=== PATIENT | female | born 1955 | race Caucasian/White ===

== ENCOUNTER → 2019-08-21 09:53 | Outpatient (CLI) | payer MEDICARE, MEDICAID, SELFPAY ==
--- NOTE | ~2019-08-21 | XR_ITS ---
XR chest 2V 08/21/2019 10:37 Indication: Productive cough Procedure: 2 view chest Comparison: Comparison to multiple prior studies sequentially, with oldest reviewed study dated 08/01. Findings: Heart size normal. No focal pneumonia, edema or effusion. The lungs are hyperinflated which is consistent with, but not diagnostic of chronic obstructive pulmonary disease. No pneumothorax. Impression: 1: No acute cardiopulmonary disease. Reviewed, dictated and finalized at location B. [employer] Impression: 1: No acute cardiopulmonary disease.
== END ==
PROVIDERS: PCP Family Medicine; Visit Provider Family Medicine
DX: R05 Cough (principal)
CPT/HCPCS: 71046

== ENCOUNTER 2020-01-05 16:10 | Inpatient (IN) | payer MEDICARE, MEDICAID, SELFPAY ==
[2020-01-05] VITALS (8 sets, daily range): BP systolic 116–164; BP diastolic 60–88; PULSE 116–131; RESP 18–22; TEMP 36.8; O2SAT 91–98
--- NOTE | ~2020-01-05 | XR_ITS ---
EXAMINATION: XR knee LT 3V, XR tibia fibula LT 2V EXAM DATE: 01/08/2020 14:56 INDICATION: Left leg pain with weightbearing. Decreased range of motion. TECHNIQUE: Three projections of the left knee. Tibia and fibula frontal and lateral projections. Ther e is no prior study for comparison. FINDINGS: Left knee: There is severe osteopenia in the left femoral distal metaphysis and the left fibular and tibial proximal metaphyses. Given that there is similar appearance to the left ankle, could be from d isuse, please clinically correlate. There is some ill-defined cortex along the tibial tuberosity, possibly disrupted anterior cortex from permeative process, or possibly a pathological tibial tuberosity fracture. There is no edema anterio r to this and there is no knee joint effusion to suggest aseptic joint. No sclerosis to suggest suba cute fracture. No radiopaque foreign bodies identified. Tibia and fibula: Left tibial and fibular distal metaphyses has some scattered regions of osteopenia. There is more pronounced osteopenia involving the entire hind and midfoot, if patient isn't ambulato ry could be from disuse. There are no bony erosions identified. IMPRESSION: 1. Severe osteopenia in tibial, fibular, distal femoral metaphyses, and the foot. Disuse? 2. Possible anterior tibial cortical disruption, check for point tenderness. Can't exclude acute fra cture or permeative process such as multiple myeloma. Clinical correlation. Consider CT or MRI left k nee for further evaluation. Reviewed, dictated and finalized at location A. IMPRESSION: 1. Severe osteopenia in tibial, fibular, distal femoral metaphyses, and the fo ot. Disuse? 2. Possible anterior tibial cortical disruption, check for point tenderness. C an't exclude acute fracture or permeative process such as multiple myeloma. Cli nical correlation. Consider CT or MRI left knee for further evaluation.
--- NOTE | ~2020-01-05 | CT_ITS ---
EXAMINATION: CTA chest PE protocol DATE: 01/11/2020 01:32 INDICATION: Tachycardia. TECHNIQUE: Computed tomography angiography (CTA) of the chest was performed with 100 mL Omnipaque-350 intravenous contrast timed to evaluate the pulmonary arteries. Coronal maximum intensity projection 3D-reconstructions were created by the technologist. Automated exposure control and iterative reconst ruction technique were employed. The dose-length product was 279.55 mGy-cm. COMPARISON: Chest CT 09/25/2017 FINDINGS: There are small pleural effusions. There is dependent passive atelectasis in the lower lobe s. There is mild atelectasis in the upper lobes and right middle lobe. There is mild emphysema. The h eart size is normal. No pericardial effusion. There is no pulmonary embolus. There is mild thoracic s pondylosis. IMPRESSION: 1. No pulmonary embolus. 2. Small pleural effusions. 3. Mild emphysema. Reviewed, dictated and finalized at location A.
--- NOTE | ~2020-01-05 | XR_ITS ---
EXAMINATION: XR hip LT 2V w AP pelvis INDICATION: Left hip pain after fall TECHNIQUE: AP view of the pelvis and two views of the left hip are obtained. COMPARISON: 09/24/2018 FINDINGS: There is a questionable intertrochanteric fracture of the left femur. The femoral head is w ell-seated in the acetabulum. Orthopedic hardware is noted in the right hip stabilizing a prior fract ure. IMPRESSION: 1. Possible left hip fracture. Further evaluation with CT of the hip is recommended. Reviewed, dictated and finalized at location A. IMPRESSION: 1. Possible left hip fracture. Further evaluation with CT of the hip is recomme nded.
--- NOTE | ~2020-01-05 | MR_ITS ---
EXAMINATION: MR hip LT wo con DATE: 01/06/2020 12:23 INDICATION: Left hip pain. Left hip contusion. TECHNIQUE: Magnetic resonance imaging (MRI) of the left hip was performed without intravenous contras t. Sequences included axial and coronal PD-weighted FS FSE and axial T1-weighted FSE of the pelvis. S equences of the hip included 2D FIESTA, T1-weighted fast GRE, and axial, coronal, and sagittal PD-radha ghted FS FSE. COMPARISON: Left hip CT 01/05/2020 FINDINGS: Bone alignment is normal. No acute fracture. There is internal fixation of proximal right femur with antegrade intramedullary faustino, femoral head/neck screw, distal interlocking screw. Left femoral head/n kathrin morphology is normal. Left hip joint demonstrates tiny marginal osteophytes. There is partial-thi ckness cartilage loss in the left hip joint posteriorly with mild subchondral edema. There is a tear of the left acetabular labrum. The left gluteus minimus and gluteus medius tendons are normal. There is edema in left gluteus medius and gluteus minimus muscle bellies. There is mild bilateral trochante rylie bursitis. There is mild tendinopathy of the left hamstring origin. The left iliopsoas tendon is n ormal. There is subcutaneous edema in the lateral buttocks on both sides. IMPRESSION: 1. No fracture. 2. Mild left hip osteoarthritis. 3. Edema in the left gluteus medius and gluteus minimus muscle bellies, consistent with contusion david eduardo mild strain (grade 1). Reviewed, dictated and finalized at location A. IMPRESSION: 1. No fracture. 2. Mild left hip osteoarthritis. 3. Edema in the left gluteus medius and gluteus minimus muscle bellies, consist ent with contusion versus mild strain (grade 1).
--- NOTE | ~2020-01-05 | XR_ITS ---
EXAMINATION: XR chest 1V portable INDICATION: Shortness of breath and confusion TECHNIQUE: Portable AP chest at 1805 hours COMPARISON: 08/21/2019 FINDINGS: The lungs are hyperinflated but free of acute opacities. There is no pleural effusion or pn eumothorax. The cardiomediastinal silhouette is normal. IMPRESSION: 1. Hyperinflation without acute cardiopulmonary abnormality. Reviewed, dictated and finalized at location A.
--- NOTE | ~2020-01-05 | CT_ITS ---
EXAMINATION: CT tibia/fibula LT wo con DATE: 01/11/2020 01:32 INDICATION: Left tibia fracture. TECHNIQUE: Computed tomography (CT) of the left tibia and fibula was performed without intravenous co ntrast. Automated exposure control and iterative reconstruction technique were employed. The dose-odell gth product was 811.70 mGy-cm. COMPARISON: Left tibia and fibula radiographs 01/08/2020 FINDINGS: There is a nondisplaced oblique fracture of proximal tibia involving the intercondylar kamryn ence and the tibial metaphysis near the tibial tubercle. Osteopenia is noted. There is mild osteoarth ritis of patellofemoral compartment of the knee. There is a small knee joint effusion. There is a sma ll Negron's cyst. IMPRESSION: 1. Nondisplaced oblique fracture of proximal tibia involving the intercondylar eminence and tibial me taphysis. 2. Mild left knee osteoarthritis. 3. Small knee joint effusion. 4. Small Negron's cyst. Reviewed, dictated and finalized at location A. IMPRESSION: 1. Nondisplaced oblique fracture of proximal tibia involving the intercondylar eminence and tibial metaphysis. 2. Mild left knee osteoarthritis. 3. Small knee joint effusion. 4. Small Negron's cyst.
--- NOTE | ~2020-01-05 | CT_ITS ---
EXAMINATION: CT cervical spine wo con DATE: 01/05/2020 16:54 INDICATION: Fall. Neck pain. TECHNIQUE: Computed tomography (CT) of the cervical spine was performed without intravenous contrast. Automated exposure control and iterative reconstruction technique were employed. Exam dose: 110.15 mGy-cm total exam DLP. COMPARISON: 01/21/2017 CT facial bones and cervical spine FINDINGS: C1 and C2 are normally aligned and the odontoid process is intact. No fracture or dislocati on or locked facet. No prevertebral soft tissue swelling. There is mild degenerative disease at C4-5 and C5-6 primarily.. IMPRESSION: Mild degenerative change; no fracture or dislocation or locked facet Reviewed, dictated and finalized at Location A. Reviewed, dictated and finalized at location B. IMPRESSION: Mild degenerative change; no fracture or dislocation or locked fac et
--- NOTE | ~2020-01-05 | CT_ITS ---
EXAMINATION: CT hip LT wo con INDICATION: Chest pain after fall TECHNIQUE: Computed tomographic images of the left hip were obtained without intravenous contrast. Th e dose-length product (DLP) was 130.71 mGy-cm. Automated exposure control and iterative reconstructio n technique were employed. COMPARISON: 02/27/2017 FINDINGS: Sensitivity for fracture is limited by osteopenia. No definite fracture is identified. Ther e is a healed greater trochanter fracture. The soft tissues are unremarkable. IMPRESSION: 1. No definite acute fracture identified. If there is persistent high clinical suspicion for nondispl aced fracture, MRI is recommended. Reviewed, dictated and finalized at location A. IMPRESSION: 1. No definite acute fracture identified. If there is persistent high clinical suspicion for nondisplaced fracture, MRI is recommended.
--- NOTE | ~2020-01-05 | US_ITS ---
EXAMINATION: US venous doppler [facility] DATE: 01/10/2020 14:36 INDICATION: Left lower limb pain. TECHNIQUE: Grayscale ultrasound images without and with compression and Doppler ultrasound images of the left lower extremity veins were obtained. COMPARISON: None. FINDINGS: The visualized portions of left common femoral vein, profunda (deep) femoral vein, femoral vein, popl iteal vein, peroneal veins, posterior tibial veins, and greater saphenous vein outflow are patent. IMPRESSION: 1. No deep venous thrombosis. Reviewed, dictated and finalized at location E.
--- NOTE | ~2020-01-05 | CT_ITS ---
EXAMINATION: CT brain wo con DATE: 01/05/2020 16:54 INDICATION: Fall. Neck pain. TECHNIQUE: Computed tomography (CT) of the head was performed without intravenous contrast. The mA wa s adjusted according to patient size. Iterative reconstruction technique was employed. Exam dose: 60 5.33 mGy-cm total exam DLP. COMPARISON: 11/24/2018 CT brain FINDINGS: Vertebral and bilateral carotid siphon internal carotid artery calcifications are noted. Examination is limited due to motion artifact. No intracranial mass lesion or hemorrhage or cerebrovascular accident is evident. No midline shifts o r mass effects. No subdural or epidural hematoma. No skull fracture is evident. Included paranasal sinuses and mastoid air cells are unremarkable. IMPRESSION: Limited examination due to motion; no acute intracranial finding or skull fracture is ev ident Reviewed, dictated and finalized at Location A. Reviewed, dictated and finalized at location B. IMPRESSION: Limited examination due to motion; no acute intracranial finding o r skull fracture is evident
--- NOTE | ~2020-01-05 | MR_ITS ---
EXAMINATION: MR brain/brain stem wo con DATE: 01/07/2020 07:10 INDICATION: Confusion. Left-sided pronator drift. TECHNIQUE: Magnetic resonance imaging (MRI) of the brain and brainstem was performed without intraven ous contrast. Sequences included sagittal and axial T1-weighted FSE, axial diffusion-weighted FS EPI, axial T2*-weighted GRE, axial T2-weighted FLAIR Propeller, and axial T2-weighted Propeller. Apparent diffusion coefficient (ADC) maps were created. COMPARISON: Head CT 01/05/2020 FINDINGS: There are scattered areas of nonspecific increased T2-weighted signal intensity in the cere bral white matter and rafael. There is no intracranial hemorrhage, acute infarction, or abnormal intrac ranial mass lesion. The ventricles are normal in size. The paranasal sinuses are clear. The orbits ar e normal. The mastoid air cells are normal. IMPRESSION: 1. Moderate nonspecific cerebral white matter disease and pontine disease, which likely represents ch ronic small vessel ischemic disease. Reviewed, dictated and finalized at location A. IMPRESSION: 1. Moderate nonspecific cerebral white matter disease and pontine disease, whic h likely represents chronic small vessel ischemic disease.
--- NOTE | 2020-01-05 16:34 | ED.GENADULT ---
HPI - General Adult General Chief complaint: Extremity Injury, Lower Stated complaint: Fell - hip pain Time Seen by Provider: 01/05/20 16:23 History of Present Illness HPI narrative: Patient is a 64 y/o female complaining severe left hip pain after a fall this morning. She states that her pain is sharp and rates it as 10/10. Pain radiates down left leg sometimes. She was given pain meds by EMS, which relieved her pain somewhat. She denies any headache, neck pain, back pain, chest pain or abdominal pain. She was unable to get up after the fall. She was on the ground for unknown amount of time until her son went to check on her. Her son call EMS after finding her on the ground. Related Data Home Medications Medication Instructions Recorded Confirmed Unable to Obtain Home Medications 01/05/20 01/05/20 Allergies Allergy/AdvReac Type Severity Reaction Status Date / Time iodine Allergy Unknown Unknown Verified 01/05/20 16:52 morphine Allergy Unknown Unknown Verified 01/05/20 16:52 Review of Systems Constitutional: Constitutional: Denies chills, Denies fever(s), Denies headache(s) and Denies weakness Eyes: Eyes: Denies blurry vision ENT: Denies headache(s) and Denies neck pain Cardiovascular: Cardiovascular: Denies chest pain and Denies dyspnea Respiratory: Respiratory: Denies cough and Denies dyspnea Gastrointestinal: Gastrointestinal: Denies abdominal pain, Denies diarrhea, Denies nausea and Denies vomiting Genitourinary: Genitourinary: Denies hematuria and Denies dysuria Musculoskeletal: Musculoskeletal: Denies back pain, Reports arthralgias (+left hip pain) and Denies neck pain Neurologic: Denies headache(s) and Denies weakness [facility] Family History Family History Grandparent Hypertension Diabetes mellitus Other Family history of malignant neoplasm Social History Social History Smoking status: Heavy tobacco smoker Alcohol intake: current Exam Const: General: no acute distress and well developed Orientation/consciousness: oriented to person, oriented to place, oriented to time and patient oriented x3 HENMT: Head: normocephalic Ears: external ears normal General nose exam: Normal external nose present Eyes: General: appearance normal, both eyes and all related structures Conjunctivae: conjunctivae normal Neck: Neck: normal visual inspection and full ROM Chest: Chest palpation & inspection: normal inspection of the chest and no tenderness Resp: Effort & Inspection: normal respiratory effort Auscultation: clear to auscultation bilaterally Cardio: Rate: tachycardic Rhythm: regular rhythm GI: GI Palp: No abdominal tenderness and Yes Soft to palpation Skin: General skin exam: normal color and turgor normal Trauma: abrasion (both arms) Neuro: General: oriented to person, oriented to place, oriented to time and patient oriented x3 Cognition (Neuro): normal cognition Extrem: General: normal to inspection, full ROM and no pedal edema Left lower extremity: hip/thigh Details: swelling and abnormal ROM (pain with ROM) Psych: Appearance: grossly normal Mental Status: mental status grossly normal Affect: normal affect Course Consultations Consultation #1: Discussed with Dr. Yap, who agrees to admit. Date: 01/05/20 Time: 20:56 Vital Signs Vital signs: Vital Signs Temperature 36.8 C 01/05/20 16:29 Pulse Rate 127 H 01/05/20 16:29 Respiratory Rate 18 01/05/20 16:29 Blood Pressure 116/83 01/05/20 16:29 Pulse Oximetry 93 01/05/20 16:29 Temperature 36.8 C 01/05/20 16:29 Pulse Rate 117 H 01/05/20 22:57 Respiratory Rate 20 01/05/20 22:57 Blood Pressure 160/64 H 01/05/20 22:57 Pulse Oximetry 96 01/05/20 22:57 Medical Decision Making Vital Signs Vital Signs: Vital Signs Temperature 36.8 C 01/05/20 16:29 Pulse Rate 127 H 01/05/20 16:29 Respir
--- NOTE | 2020-01-05 18:05 | PC.NURSE ---
Pt's o2 off, pt extremely drowsy. Appears to have pain relief. 02 replaced, pt awoken with loud calling, states is feeling fine . Noted change in mental status to Dr. Rodríguez.
--- NOTE | 2020-01-05 18:38 | PC.NURSE ---
Pt returns from CT, difficult to redirect, states i want more, I want more . C-collar removed per order Dr. Rodríguez. Pt unable to cooperate for the CT of hip. Calms somewhat after collar removed and states will try to get through the hip CT.
[2020-01-05 18:41] LABS: Basophils Percent Auto 0.3 % (0.2-1.2); Immature Granulocyte Absolute 0.05 K/mm3 (0.00-0.031); Immature Granulocyte Percent A 0.4 % (0-0.5); Lymphocytes Absolute Auto 0.57 K/mm3 (0.9-3.2); Lymphocytes Percent Auto 4.5 % (18.3-44.2); Mean Corpuscular HGB Conc 34.1 g/dl (32-36); Mean Corpuscular Hemoglobin 34.2 pg (26-34); Mean Corpuscular Volume 100.2 fl (80-100); Mean Platelet Volume 9.2 fl (7.4-10.4); Monocytes Absolute Auto 0.9 K/mm3 (0.1-0.6); Monocytes Percent Auto 6.8 % (2.6-8.5); Platelet Count Result 225 k/mm3 (150-375); Red Blood Count 4.39 M/mm3 (4.2-5.4); Red Cell Distribution Width 12.2 % (11.5-14.5); White Blood Count 12.6 K/mm3 (4.5-10.0)
--- NOTE | 2020-01-05 18:45 | PC.NURSE ---
Pt returns from CT, noted to be repeating phrases watkins, june, june and yeah yeah , smaking lips, repeating self. Able to redirect for a few seconds when name is called. Pt's brother remains at bedside, states I've never seen her like this . Dr. Rodríguez made aware of patient's continously changing demeanor.
[2020-01-05 18:52] LABS: INR 0.9; Prothrombin Time 11.5 Seconds (11.1-14.7)
[2020-01-05 18:53] LABS: Partial Thromboplastin Time 25.8 SECONDS (22.3-36.8)
[2020-01-05 18:59] LABS: Alanine Aminotransferase 27 U/L (4-35); Albumin Level 3.5 g/dL (3.5-5.1); Alkaline Phosphatase 155 U/L (38-126); Aspartate Amino Transferase 52 U/L (14-36); Blood Urea Nitrogen 7 mg/dL (7-17); Calcium 8.9 mg/dL (8.4-10.2); Carbon Dioxide 30 mmol/L (22-30); Chloride 99 mmol/L (98-107); Creatine Kinase 824 U/L (30-135); Estimated CRCL calculation 58 ml/min; Estimated Glomerular Filt Rate > 60; Glucose 118 mg/dL (65-105); Potassium 4.4 mmol/L (3.4-5.0); Sodium 134 mmol/L (137-145)
--- NOTE | 2020-01-05 19:20 | PC.NURSE ---
Report received at this time. pt resting on stretcher, pt making incomprehensible speech, but when addressed by Lawanda, pt will say what? pt is able to tell this RN she is at [place]. pt's brother is at bedside-updated on poc at this time.
[2020-01-05 19:40] LABS: Add Urine Microscopic? NO; Appearance Urine Clear (Clear); Bilirubin Urine Negative (Negative); Blood Urine Negative (Negative); Color Urine Yellow (Yellow); Glucose Urine UA Negative (Negative); Ketones Urine Negative (Negative); Leukocyte Esterase Ur Negative LEU/UL (Negative); Nitrate Urine Negative (Negative); Protein Urine Negative (Negative); Specific Grav Ur 1.008 (1.001-1.035); Urobilinogen Urine Negative mg/dL (<2.0)
[2020-01-05 20:04] LABS: Base Excess ABG 4.1 mEq/l (+/-2.0); Fractional Inspired Oxygen 32 %; HCO3 ABG 29.6 mEq/l (22.0-26.0); Oxygen Content ABG 19.1 %vol (16.0-22.0); Oxygen Saturation ABG 93.8 % (95.0-100.0); Oxyhemoglobin 89.3 % THb (90.0-100.0); PCO2 ABG 47.5 mmHg (35.0-45.0); PO2 ABG 68.6 mmHg (80.0-100.0); PO2 FiO2 Ratio Arterial Blood 2.14 %; Total Hemoglobin 15.2 g/dL (12.0-18.0); pH ABG 7.413 (7.350-7.450)
[2020-01-05] MEDS: SODIUM CHLORIDE 0.9% IV 1,000 ML 999 ML IV CONT (20:04)
[2020-01-05 20:05] LABS: Device NASAL CANNULA; Modified Allen's Test Pass; Site Drawn RIGHT RADIAL
[2020-01-05 20:05] LABS: Amphetamine Screen Urine Negative (Negative); Barbiturate Screen Urine Negative (Negative); Benzodiazepines Screen Urine Negative (Negative); Cannabinoid Screen Urine Negative (Negative); Cocaine Screen Urine Negative (Negative); Methadone Screen Urine Negative (Negative); Opiate Screen Urine Negative (Negative); Phencyclidine Screen Urine Negative (Negative)
--- NOTE | 2020-01-05 23:46 | ADMGEN ---
This patient, Lawanda Gallagher, was admitted to 3 [facility] Surg Room 307-01. Patient/family oriented to hospital policies and general routines including ID bracelet, bed and alarms, visiting hours, pain management, procedures, bathroom and other care routines, personal items, smoking policy, room service/diet, and visiting hours. Valuables list has been completed. Information on how to activate the Rapid Response Team has been discussed. Patient/Family are encouraged to report perceived risks to care and to ask questions if they do not understand what they are told or what they should do.
[2020-01-06] VITALS (11 sets, daily range): BP systolic 103–135; BP diastolic 42–65; PULSE 94–114; RESP 16–20; TEMP 36.8–37.1; O2SAT 80–95; BMI 19.3
--- NOTE | 2020-01-06 00:08 | PM.IMHP ---
H&P: HPI History of Present Illness Chief complaint: left hip contusion Narrative: This is a 64 year old female who presented to the hospital this evening after suffering a fall this morning at home. The patient was found on the ground by her son as she was unable to get up and ambulate. The patient was found down for an unknown amount of time. The patient wasn't sure if she actually had passed out or not but denied any head trauma. The patient was brought to the hospital and evaluated. She had both xray films and CT scan of her left hip which did not demonstrate any acute fracture although the patient had severe pain. She was also found to be in mild rhabdomyolysis. She was treated with fentanyl which caused her to become somnolent and poorly responsive. On my encounter with the patient she appears obtunded and wakes up to sternal rub and quickly falls back asleep. No other history is obtainable from the patient at this time. Review of Systems Review of Systems: ROS unobtainable: Yes unobtainable due to mental status [facility] Family History Family History Grandparent Hypertension Diabetes mellitus Other Family history of malignant neoplasm Social History Social History Smoking status: Heavy tobacco smoker Alcohol intake: current Substance use: unknown Spiritual care concerns: No Comments Past medical/surgical/family/social history is unobtainable from the patient at this time. Meds Home Medications and Allergies Home Medications Medication Instructions Recorded Confirmed Type Unable to Obtain Home Medications 01/05/20 01/05/20 History Allergies Allergy/AdvReac Type Severity Reaction Status Date / Time iodine Allergy Unknown Unknown Verified 01/05/20 16:52 morphine Allergy Unknown Unknown Verified 01/05/20 16:52 Vital Signs Vital Signs - 24 hr 01/05/20 16:29 01/05/20 16:30 01/05/20 17:46 Temperature 36.8 C Pulse Rate 127 H 129 H 124 H Respiratory Rate 18 19 19 Blood Pressure 116/83 132/80 128/63 Pulse Oximetry 93 93 92 01/05/20 18:00 01/05/20 18:45 01/05/20 20:51 Temperature Pulse Rate 131 H 118 H 120 H Respiratory Rate 22 H 22 H 19 Blood Pressure 164/88 H 128/78 141/60 H Pulse Oximetry 91 92 95 01/05/20 21:00 01/05/20 22:57 Temperature Pulse Rate 116 H 117 H Respiratory Rate 18 20 Blood Pressure 141/68 H 160/64 H Pulse Oximetry 98 96 Exam Const: General: other (somnolent and poorly arousable+) Nutritional Appearance: thin Orientation/consciousness: confusion and patient obtunded HENMT: Head: normal to inspection General nose exam: Normal external nose present Face and sinus: normal facial exam Mouth: Yes Normal oral and palatal mucosa present and Yes oropharynx normal Eyes: Pupils: Equal, round and reactive pupils present Neck: Neck: supple and no JVD Thyroid: thyroid normal Lymphatic: lymphadenopathy not noted Resp: Effort & Inspection: normal respiratory effort Auscultation: clear to auscultation bilaterally Cardio: Rate: regular rate Rhythm: regular rhythm Heart sounds: no murmurs GI: Inspection: normal to inspection Auscultation: normal bowel sounds Skin: General skin exam: normal color and other (brusing noted on right hip and buttock++ ) Neuro: General: patient obtunded Cranial nerves: Yes Equal, round and reactive pupils present Extrem: General: other (Left lower extremity pain with manipulation++ ) H&P: Results Labs Labs: Short CBC 01/05/20 Range/Units 18:19 WBC 12.6 H (4.5-10.0) K/mm3 Hgb 15.0 (12.0-15.0) g/dL Hct 44.0 (37.0-47.0) % Plt Count 225 (150-375) k/mm3 [facility] 01/05/20 18:19 Sodium 134 L Potassium 4.4 Chloride 99 Carbon Dioxide 30 BUN 7 Creatinine 0.60 L Glucose 118 H Calcium 8.9 Cardiac Enzymes 01/05/20 Range/Units 18:19 Total Creatine Kinase 824 H
[2020-01-06] MEDS: SODIUM CHLORIDE 0.9% IV 1,000 ML 120 ML IV CONT ×3 (02:40→21:30)
[2020-01-06] MEDS: KETOROLAC 30 MG/ML VIAL (*BKC) IV PUSH (02:45)
[2020-01-06 06:01] LABS: Basophils Percent Auto 0.3 % (0.2-1.2); Hematocrit 39.5 % (37.0-47.0); Hemoglobin 13.1 g/dL (12.0-15.0); Immature Granulocyte Absolute 0.04 K/mm3 (0.00-0.031); Immature Granulocyte Percent A 0.3 % (0-0.5); Lymphocytes Absolute Auto 0.94 K/mm3 (0.9-3.2); Lymphocytes Percent Auto 8.1 % (18.3-44.2); Mean Corpuscular HGB Conc 33.2 g/dl (32-36); Mean Corpuscular Hemoglobin 34.5 pg (26-34); Mean Corpuscular Volume 103.9 fl (80-100); Mean Platelet Volume 9.5 fl (7.4-10.4); Monocytes Absolute Auto 0.9 K/mm3 (0.1-0.6); Monocytes Percent Auto 8.1 % (2.6-8.5); Neutrophils Absolute Auto 9.6 K/mm3 (1.3-6.7); Neutrophils Percent Auto 83.2 % (45.5-73.1); Platelet Count Result 201 k/mm3 (150-375); Red Cell Distribution Width 12.4 % (11.5-14.5); White Blood Count 11.5 K/mm3 (4.5-10.0)
[2020-01-06 06:20] LABS: Blood Urea Nitrogen 6 mg/dL (7-17); Calcium 8.2 mg/dL (8.4-10.2); Carbon Dioxide 29 mmol/L (22-30); Chloride 102 mmol/L (98-107); Estimated CRCL calculation 58 ml/min; Estimated Glomerular Filt Rate > 60; Glucose 101 mg/dL (65-105); Sodium 133 mmol/L (137-145)
[2020-01-06 06:26] LABS: Creatine Kinase 1049 U/L (30-135)
--- NOTE | 2020-01-06 13:04 | PM.IMPN ---
Progress Note: A&P Assessment and Plan (1) Altered mental status: Code(s): R41.82 - Altered mental status, unspecified Status: Acute Assessment and Plan: the patient appears to be confused and does not answer my questions during my examination at times. The patient's brother is at bedside who states the patient is not her normal self she is normally very talkative. patient's CT head and cervical spine on arrival showed no acute intracranial abnormality and only mild degenerative changes to her cervical spine. On examination she did have a slight pronator drift to the left so I will order an MRI of her brain to rule out any acute stroke or abnormality as to why she is having altered mental status. During my examination she stopped talking to me for about 2 minutes and in the meantime she was staring off. It does not appear she has a history of any seizure activity but due to her altered mental status and episode I will order an EEG to be completed for further evaluation. Will continue holding any medications that could cause her to become more drowsy and altered. Consider consulting Neurology if there is any abnormality to her findings Or worsening changes. (2) Contusion of hip, left: Qualifiers: Encounter type: initial encounter Qualified Code(s): S70.02XA - Contusion of left hip, initial encounter Code(s): S70.02XA - Contusion of left hip, initial encounter Status: Acute Assessment and Plan: Patient came in after being found down on the ground for unknown amount of time. She has been complaining of left hip pain. hip and pelvis x-ray, hip CT and hip MRI showed no acute fracture noted. It just showed signs of edema to the left gluteus medius and gluteus minimus muscle bellies consistent with a contusion versus a muscle strain. Will continue with Tylenol scheduled for pain. will order physical and occupational therapy to evaluate the patient's do not want to give narcotics at this time because she still appears slightly confused and I do not want to alter her mental status anymore with narcotic pain medications. Continue monitoring patient's pain level. (3) Rhabdomyolysis: Qualifiers: Encounter type: initial encounter Rhabdomyolysis type: traumatic Qualified Code(s): T79.6XXA - Traumatic ischemia of muscle, initial encounter Code(s): M62.82 - Rhabdomyolysis Status: Acute Assessment and Plan: Patient CK on arrival was elevated at 824 and repeat today was a 1049. she has been receiving IV fluid hydration and we will recheck labs in the morning. Continue IV fluids. Check CK in am. Monitor urine output. Monitor electrolytes - especially potassium. (4) Leukocytosis: Qualifiers: Leukocytosis type: unspecified Qualified Code(s): D72.829 - Elevated white blood cell count, unspecified Code(s): D72.829 - Elevated white blood cell count, unspecified Status: Acute Assessment and Plan: Likely secondary to acute trauma. Leukocytosis slightly improved to 11,500 thousand five hundred today and there is a slight elevation to neutrophils 83%. Patient's urinalysis was completely normal and no signs of an acute infection. Patient's chest x-ray showed hyperinflation without any acute cardiopulmonary abnormality. The patient is resting comfortably on her home oxygen of 2 L via nasal cannula but she does have a productive cough and some chest congestion. I have ordered some DuoNeb treatments q.6 hours as well as Mucinex to help with her phlegm production. She otherwise feels like she is at her baseline with her breathing. The patient's symptoms change or shortness of breath becomes worse then I will order a repeat chest x-ray to rule out any underlying pneumonia.
[2020-01-06] MEDS: IPRATROPIUM BR 0.02% INH SOLN 0.5 MG/2.5 ML VIAL INHALATION ×2 (14:05→20:02)
[2020-01-06] MEDS: ALBUTEROL SULFATE NEB 2.5 MG/0.5 ML INH INHALATION ×2 (14:06→20:01)
[2020-01-06] MEDS: guaiFENesin 12 HR 600 MG TABCR PO ×2 (15:17→21:28)
[2020-01-06] MEDS: buPROPion HCL 75 MG TABLET PO (18:19)
[2020-01-06] MEDS: ACETAMINOPHEN 325 MG TABLET 650 MG PO ×2 (18:19→21:28)
[2020-01-06] MEDS: ISOSORBIDE MONONITRATE 30 MG TAB.ER.24H PO (18:19)
[2020-01-07] VITALS (17 sets, daily range): BP systolic 113–129; BP diastolic 57–64; PULSE 95–115; RESP 16–20; TEMP 36.7–37; O2SAT 90–94
[2020-01-07] MEDS: ALBUTEROL SULFATE NEB 2.5 MG/0.5 ML INH INHALATION ×4 (02:07→20:41)
[2020-01-07] MEDS: IPRATROPIUM BR 0.02% INH SOLN 0.5 MG/2.5 ML VIAL INHALATION ×4 (02:07→20:41)
[2020-01-07] MEDS: ACETAMINOPHEN 325 MG TABLET 650 MG PO ×4 (03:25→20:20)
[2020-01-07 06:09] LABS: Basophils Percent Auto 0.2 % (0.2-1.2); Eosinophils Percent Auto 0.1 % (0-4.4); Hematocrit 34.2 % (37.0-47.0); Hemoglobin 11.4 g/dL (12.0-15.0); Immature Granulocyte Absolute 0.03 K/mm3 (0.00-0.031); Immature Granulocyte Percent A 0.4 % (0-0.5); Lymphocytes Percent Auto 13.3 % (18.3-44.2); Mean Corpuscular HGB Conc 33.3 g/dl (32-36); Mean Corpuscular Volume 104.9 fl (80-100); Mean Platelet Volume 9.5 fl (7.4-10.4); Monocytes Absolute Auto 0.6 K/mm3 (0.1-0.6); Monocytes Percent Auto 7.1 % (2.6-8.5); Neutrophils Absolute Auto 6.6 K/mm3 (1.3-6.7); Neutrophils Percent Auto 78.9 % (45.5-73.1); Platelet Count Result 186 k/mm3 (150-375); Red Blood Count 3.26 M/mm3 (4.2-5.4); Red Cell Distribution Width 12.5 % (11.5-14.5); White Blood Count 8.3 K/mm3 (4.5-10.0)
[2020-01-07] MEDS: SODIUM CHLORIDE 0.9% IV 1,000 ML 120 ML IV CONT (06:18)
[2020-01-07 06:21] LABS: Alanine Aminotransferase 28 U/L (4-35); Albumin Level 2.4 g/dL (3.5-5.1); Alkaline Phosphatase 92 U/L (38-126); Anion Gap 7.7 mmol/L (7-16); Aspartate Amino Transferase 81 U/L (14-36); Bilirubin,Total 0.5 mg/dL (0.2-1.3); Blood Urea Nitrogen 9 mg/dL (7-17); Calcium 7.6 mg/dL (8.4-10.2); Carbon Dioxide 24 mmol/L (22-30); Chloride 106 mmol/L (98-107); Creatine Kinase 722 U/L (30-135); Estimated CRCL calculation 58 ml/min; Estimated Glomerular Filt Rate > 60; Glucose 85 mg/dL (65-105); Potassium 3.7 mmol/L (3.4-5.0); Sodium 134 mmol/L (137-145)
[2020-01-07 06:29] LABS: Transferrin 143 mg/dL (206-381)
[2020-01-07 06:35] LABS: Iron 33 ug/dL (37-170)
[2020-01-07 06:44] LABS: Percent Iron Saturation 16 % (20-50)
[2020-01-07 07:27] LABS: Folic Acid 16.6 ng/mL (2.76->20)
--- NOTE | 2020-01-07 08:00 | NEURO_ITS ---
TEST: ELECTROENCEPHALOGRAM DIAGNOSIS: PERIODS OF UNRESPONSIVENESS PATIENT NUMBER: [id number] EEG NUMBER: [id number] RECORDING DATE: 01/07/20 CLINICAL HISTORY: Patient was found unresponsive yesterday. CONDITION OF RECORDING: Awake, drowsy and sleep EEG DESCRIPTION: Basic resting occipital frequency consists of moderate amount of fairly well organized low to medium voltage 8-9hz alpha mixed with low voltage 15-18hz beta. During drowsiness low voltage beta activity is seen diffusely mixed with waxing and waning posterior alpha rhythms. Bilateral symmetrical sleep activity is seen during sleep. Multiple movement and muscle artifacts are seen in addition to the low voltage beta activity. Hyperventilation and photic stimulation were not done. Nonparoxysmal. Nonfocal. Nonlateralizing. IMPRESSION: No significant abnormalities noted. MTDD
[2020-01-07] MEDS: guaiFENesin 12 HR 600 MG TABCR PO ×2 (09:19→20:20)
[2020-01-07] MEDS: ISOSORBIDE MONONITRATE 30 MG TAB.ER.24H PO (09:20)
[2020-01-07] MEDS: buPROPion HCL 75 MG TABLET PO (09:21)
--- NOTE | 2020-01-07 12:31 | P.DS_ITS ---
DS: Admitting Diagnosis Admitting Diagnosis Admitting Diagnosis: Contusion of left hip, initial encounter DS: Discharge Diagnosis Discharge Diagnosis (1) Altered mental status: Code(s): R41.82 - Altered mental status, unspecified Status: Acute Assessment and Plan: the patient appears to be confused and does not answer my questions during my examination at times. The patient's brother is at bedside who states the patient is not her normal self she is normally very talkative. * patient's CT head and cervical spine on arrival showed no acute intracranial abnormality and only mild degenerative changes to her cervical spine. * On examination she did have a slight pronator drift to the left so I will or jennifer an MRI of her brain to rule out any acute stroke or abnormality as to why she is having altered mental status. * During my examination she stopped talking to me for about 2 minutes and in the meantime she was staring off. It does not appear she has a history of any seizure activity but due to her altered mental status and episode I will order an EEG to be completed for further evaluation. Will continue holding any medications that could cause her to become more drowsy and altered. Consider consulting Neurology if there is any abnormality to her findings Or worsening changes. (2) Contusion of hip, left: Qualifiers: Encounter type: initial encounter Qualified Code(s): S70.02XA - Contusion of left hip, initial encounter Code(s): S70.02XA - Contusion of left hip, initial encounter Status: Acute Assessment and Plan: Patient came in after being found down on the ground for unknown amount of time. She has been complaining of left hip pain. * hip and pelvis x-ray, hip CT and hip MRI showed no acute fracture noted. It just showed signs of edema to the left gluteus medius and gluteus minimus muscle bellies consistent with a contusion versus a muscle strain. * Will continue with Tylenol scheduled for pain. * will order physical and occupational therapy to evaluate the patient's * do not want to give narcotics at this time because she still appears slightly confused and I do not want to alter her mental status anymore with narcotic pain medications. Continue monitoring patient's pain level. (3) Rhabdomyolysis: Qualifiers: Encounter type: initial encounter Rhabdomyolysis type: traumatic Qualified Code(s): T79.6XXA - Traumatic ischemia of muscle, initial encounter Code(s): M62.82 - Rhabdomyolysis Status: Acute Assessment and Plan: Patient CK on arrival was elevated at 824 and repeat today was a 1049. * she has been receiving IV fluid hydration and we will recheck labs in the morning. Continue IV fluids. Check CK in am. Monitor urine output. Monitor electrolytes - especially potassium. (4) Leukocytosis: Qualifiers: Leukocytosis type: unspecified Qualified Code(s): D72.829 - Elevated white blood cell count, unspecified Code(s): D72.829 - Elevated white blood cell count, unspecified Status: Acute Assessment and Plan: Likely secondary to acute trauma. * Leukocytosis slightly improved to 11,500 thousand five hundred today and there is a slight elevation to neutrophils 83%. * Patient's urinalysis was completely normal and no signs of an acute infection. * Patient's chest x-ray showed hyperinflation without any acute cardiopulmonary abnormality. *
--- NOTE | 2020-01-07 12:31 | PM.IMPN ---
Progress Note: A&P Assessment and Plan (1) Generalized weakness: Code(s): R53.1 - Weakness Status: Acute Assessment and Plan: Generalized weakness. She is not very active at home and is even weaker here after her fall. Will have neurology evaluate the patient, continue PT/OT. (2) Altered mental status: Code(s): R41.82 - Altered mental status, unspecified Status: Acute Assessment and Plan: the patient appears to be confused and does not answer my questions during my examination at times on 01/07/2020. The patient's brother is at bedside who states the patient is not her normal self she is normally very talkative. Patient's CT head and cervical spine on arrival showed no acute intracranial abnormality and only mild degenerative changes to her cervical spine. On examination she did have a slight pronator drift to the left so I will order an MRI of her brain which showed moderate chronic small vessel disease. During my examination she stopped talking to me for about 2 minutes and in the meantime she was staring off. It does not appear she has a history of any seizure activity but due to her altered mental status and episode I ordered an EEG to rule out acute seizures Will consult neurology. She seems to be back to her baseline without any confusion today. Pending EEG and neurology consult. Will continue holding any medications that could cause her to become more drowsy and altered. Consider consulting Neurology if there is any abnormality to her findings Or worsening changes. (3) Contusion of hip, left: Qualifiers: Encounter type: initial encounter Qualified Code(s): S70.02XA - Contusion of left hip, initial encounter Code(s): S70.02XA - Contusion of left hip, initial encounter Status: Acute Assessment and Plan: Patient came in after being found down on the ground for unknown amount of time. She has been complaining of left hip pain. hip and pelvis x-ray, hip CT and hip MRI showed no acute fracture noted. It just showed signs of edema to the left gluteus medius and gluteus minimus muscle bellies consistent with a contusion versus a muscle strain. Will continue with Tylenol scheduled for pain. will order physical and occupational therapy to evaluate the patient's do not want to give narcotics at this time because she still appears slightly confused and I do not want to alter her mental status anymore with narcotic pain medications. Continue monitoring patient's pain level. (4) Rhabdomyolysis: Qualifiers: Encounter type: initial encounter Rhabdomyolysis type: traumatic Qualified Code(s): T79.6XXA - Traumatic ischemia of muscle, initial encounter Code(s): M62.82 - Rhabdomyolysis Status: Acute Assessment and Plan: Patient CK on arrival was elevated at 824, then elevated to 1049 and improved to 722. she has been receiving IV fluid hydration and we will recheck labs in the morning. Continue IV fluids. Check CK in am. Monitor urine output. Monitor electrolytes - especially potassium. (5) Leukocytosis: Qualifiers: Leukocytosis type: unspecified Qualified Code(s): D72.829 - Elevated white blood cell count, unspecified Code(s): D72.829 - Elevated white blood cell count, unspecified Status: Acute Assessment and Plan: Likely secondary to acute trauma. Leukocytosis improved to normal today at 8,300 and neutropils improved. Patient's urinalysis was completely normal and no signs of an acute infection. Patient's chest x-ray showed hyperinflation without any acute cardiopulmonary abnormality. The patient is resting comfortably on her home oxygen of 2 L via nasal cannula but she does have a pr
[2020-01-07] MEDS: SODIUM CHLORIDE 0.9% IV 1,000 ML 75 ML IV CONT (16:46)
--- NOTE | 2020-01-07 17:02 | PCDIET ---
Nutrition Follow-Up Complete: Inadequate oral intake at present related to altered mental status as evidenced by NPO diet. Patient to meet estimated nutritional needs. Goal: Goal not met. Continue current goal. Pt current nutrition is Regular. Nutrition recommendation: Agree Last recorded weight is 45 kg. Bowel Motility: Diarrhea with food intake Labs Reviewed:AST 81, ALT 28, Albumin 2.4, Protein 5.0. Meds Noted: Normal Saline Additional Notes: Pt intake of 0% on clears. Pt is not interested in any supplements or snacks between meals. AST/ALT ratio suspicious for ETOH abuse. Pt does state current ETOH intake. Recommend folic acid and thiamine. Pt states her UBW is 105-110. She is currently 99lbs with signs of malnutrition (wt loss of 6lbs, temporal wasting, low protein status). Pt states she gets diarrhea every time she eats so she tries to eat a little at a time. Regular snacking encouraged. Pt also edu on digestive enzymes, chewing well, leaving fluids outside of meals to aid in better digestion. Follow up every 5 days.
[2020-01-08] VITALS (17 sets, daily range): BP systolic 107–155; BP diastolic 65–79; PULSE 3–136; RESP 16–20; TEMP 36.3–36.6; O2SAT 92–95
[2020-01-08] MEDS: ACETAMINOPHEN 325 MG TABLET 650 MG PO ×4 (00:27→14:09)
[2020-01-08] MEDS: SODIUM CHLORIDE 0.9% IV 1,000 ML 75 ML IV CONT (00:57)
--- NOTE | 2020-01-08 02:09 | PCRCNOTE ---
pt refused neb tx after stating that she no longer has insurance
[2020-01-08 06:26] LABS: Hematocrit 34.5 % (37.0-47.0); Hemoglobin 11.4 g/dL (12.0-15.0); Mean Corpuscular Hemoglobin 34.5 pg (26-34); Mean Corpuscular Volume 104.5 fl (80-100); Mean Platelet Volume 9.5 fl (7.4-10.4); Platelet Count Result 204 k/mm3 (150-375); Red Cell Distribution Width 12.5 % (11.5-14.5); White Blood Count 6.7 K/mm3 (4.5-10.0)
[2020-01-08 06:36] LABS: Alanine Aminotransferase 27 U/L (4-35); Albumin Level 2.5 g/dL (3.5-5.1); Alkaline Phosphatase 91 U/L (38-126); Anion Gap 7.7 mmol/L (7-16); Aspartate Amino Transferase 56 U/L (14-36); Bilirubin,Total 0.6 mg/dL (0.2-1.3); Blood Urea Nitrogen 7 mg/dL (7-17); Calcium 7.7 mg/dL (8.4-10.2); Carbon Dioxide 23 mmol/L (22-30); Chloride 104 mmol/L (98-107); Creatine Kinase 320 U/L (30-135); Estimated CRCL calculation 68 ml/min; Estimated Glomerular Filt Rate > 60; Glucose 74 mg/dL (65-105); Potassium 3.7 mmol/L (3.4-5.0); Sodium 131 mmol/L (137-145)
[2020-01-08] MEDS: ISOSORBIDE MONONITRATE 30 MG TAB.ER.24H PO (08:23)
[2020-01-08] MEDS: guaiFENesin 12 HR 600 MG TABCR PO ×2 (08:23→21:33)
[2020-01-08] MEDS: buPROPion HCL 75 MG TABLET PO (08:24)
[2020-01-08] MEDS: ALBUTEROL SULFATE NEB 2.5 MG/0.5 ML INH INHALATION ×2 (08:44→13:37)
[2020-01-08] MEDS: IPRATROPIUM BR 0.02% INH SOLN 0.5 MG/2.5 ML VIAL INHALATION ×3 (08:44→21:00)
--- NOTE | 2020-01-08 13:35 | PM.IMPN ---
Progress Note: A&P Assessment and Plan (1) Left knee pain: Code(s): M25.562 - Pain in left knee Status: Acute Assessment and Plan: Patient reports decreased range of motion to her left knee along with pain with bearing any weight. X-ray of left knee and tib-fib will be ordered to rule out any acute fracture. Will add on tramadol and [place] as needed for pain control continue physical and occupational therapy as tolerated. Continue monitoring patient's pain and get imaging for further evaluation. (2) Tachycardia: Code(s): R00.0 - Tachycardia, unspecified Status: Acute Assessment and Plan: Patient is found to be tachycardic at rest which could be related to her underlying COPD, deconditioned state, underlying PE, or thyroid issue. TSH was normal. Will perform a CTA of her chest due to her tachycardia rule out any underlying pneumonia or PE if patient does an underlying PE then will consider adding Cardizem to her regimen for better heart rate control at rest and with exertion. She is not have any chest pain, shortness of breath, palpitations. Continue monitoring her on telemetry. (3) Generalized weakness: Code(s): R53.1 - Weakness Status: Acute Assessment and Plan: Generalized weakness. She is not very active at home and is even weaker here after her fall. Will have neurology evaluate the patient Continue PT/OT. (4) Altered mental status: Code(s): R41.82 - Altered mental status, unspecified Status: Acute Assessment and Plan: the patient appears to be confused and does not answer my questions during my examination at times on 01/07/2020. The patient's brother is at bedside who states the patient is not her normal self she is normally very talkative. Patient's CT head and cervical spine on arrival showed no acute intracranial abnormality and only mild degenerative changes to her cervical spine. On examination she did have a slight pronator drift to the left so I will order an MRI of her brain which showed moderate chronic small vessel disease. During my examination she stopped talking to me for about 2 minutes and in the meantime she was staring off. It does not appear she has a history of any seizure activity but due to her altered mental status and episode I ordered an EEG to rule out acute seizures EEG showed no abnormality. Neurology Was consulted for further evaluation She seems to be back to her baseline without any confusion today. continue monitoring mental status. (5) Contusion of hip, left: Qualifiers: Encounter type: initial encounter Qualified Code(s): S70.02XA - Contusion of left hip, initial encounter Code(s): S70.02XA - Contusion of left hip, initial encounter Status: Acute Assessment and Plan: Patient came in after being found down on the ground for unknown amount of time. She has been complaining of left hip pain. hip and pelvis x-ray, hip CT and hip MRI showed no acute fracture noted. It just showed signs of edema to the left gluteus medius and gluteus minimus muscle bellies consistent with a contusion versus a muscle strain. Will continue with Tylenol scheduled for pain. will order physical and occupational therapy to evaluate the patient's Continue monitoring patient's pain level. (6) Rhabdomyolysis: Qualifiers: Encounter type: initial encounter Rhabdomyolysis type: traumatic Qualified Code(s): T79.6XXA - Traumatic ischemia of muscle, initial encounter Code(s): M62.82 - Rhabdomyolysis Status: Acute Assessment and Plan: Patient CK on arrival was elevated at 824, then elevated to 1049 a
--- NOTE | 2020-01-08 14:42 | WPDNEURCNPN ---
Assessment and Plan Assessment and plan (1) Left knee pain: Code(s): M25.562 - Pain in left knee Status: Acute (2) Tachycardia: Code(s): R00.0 - Tachycardia, unspecified Status: Acute (3) Generalized weakness: Code(s): R53.1 - Weakness Status: Acute (4) COPD (chronic obstructive pulmonary disease): Code(s): J44.9 - Chronic obstructive pulmonary disease, unspecified Status: Acute (5) Chronic respiratory failure: Code(s): J96.10 - Chronic respiratory failure, unspecified whether with hypoxia or hypercapnia Status: Acute (6) Altered mental status: Code(s): R41.82 - Altered mental status, unspecified Status: Acute (7) Hypertension: Qualifiers: Hypertension type: unspecified Qualified Code(s): I10 - Essential (primary) hypertension Code(s): I10 - Essential (primary) hypertension Status: Acute (8) Leukocytosis: Qualifiers: Leukocytosis type: unspecified Qualified Code(s): D72.829 - Elevated white blood cell count, unspecified Code(s): D72.829 - Elevated white blood cell count, unspecified Status: Acute (9) Contusion of hip, left: Qualifiers: Encounter type: initial encounter Qualified Code(s): S70.02XA - Contusion of left hip, initial encounter Code(s): S70.02XA - Contusion of left hip, initial encounter Status: Acute (10) Rhabdomyolysis: Qualifiers: Encounter type: initial encounter Rhabdomyolysis type: traumatic Qualified Code(s): T79.6XXA - Traumatic ischemia of muscle, initial encounter Code(s): M62.82 - Rhabdomyolysis Status: Acute (11) Partial seizure: Code(s): R56.9 - Unspecified convulsions Status: Acute Additional Plan patient needs to stop drinking she does have evidence of peripheral neuropathy and risk for fall I have started on low-dose Keppra see what she does rest of the management as per the hospitalist Consult date: 01/08/20 Time Seen: 14:00 HPI: Lawanda Galalgher is a 64 year old female who was admitted because of the contusion and a fall she was noted to have what sounds like partial complex seizure with post ictal confusion and staring in space she does except to be a drinker and has been drinking for quite some time I suspect has that something to do with her alcohol and/or Welchol withdrawal she denies any headache nausea vomiting chest pain shortness of breath fever chills sore throat PMFSH Past Medical History Medical History Chronic respiratory failure COPD (chronic obstructive pulmonary disease) Family History Family History Grandparent Hypertension Diabetes mellitus Other Family history of malignant neoplasm Social History Social History Smoking status: Heavy tobacco smoker Alcohol intake: current Substance use: unknown Spiritual care concerns: No Meds Home Medications and Allergies Home Medications Medication Instructions Recorded Confirmed Type baclofen 10 mg PO TID 01/06/20 01/06/20 History bupropion HCl 75 mg PO DAILY 01/06/20 01/06/20 History isosorbide mononitrate 30 mg PO DAILY 01/06/20 01/06/20 History Allergies Allergy/AdvReac Type Severity Reaction Status Date / Time iodine Allergy Unknown Unknown Verified 01/05/20 16:52 morphine Allergy Unknown Hives Verified 01/08/20 14:31 Vital Signs Vital Signs - 24 hr 01/07/20 14:50 01/07/20 16:00 01/07/20 20:00 Temperature Pulse Rate 95 105 H 101 H Respiratory Rate Blood Pressure Pulse Oximetry 01/07/20 20:43 01/07/20 20:44 01/07/20 22:00 Temperature 37.0 C Pulse Rate 100 112 H Respiratory Rate 16 20 Blood Pressure 123/64 Pulse Oximetry 94 90 01/08/20 00:00 01/08/20 02:06 01/08/20 04:00 Temperature Pulse Rate 112 H 3 L 105 H
[2020-01-08] MEDS: traMADol HCL 50 MG TABLET PO (18:27)
[2020-01-08] MEDS: LEVALBUTEROL NEB 1.25 MG/3 ML 0.63 MG INHALATION (21:00)
[2020-01-08] MEDS: MELATONIN 3 MG TABLET PO (21:33)
[2020-01-08] MEDS: levETIRAcetam 250 MG TABLET PO (21:33)
[2020-01-09] VITALS (16 sets, daily range): BP systolic 117–135; BP diastolic 53–65; PULSE 93–113; RESP 16–20; TEMP 36.4–36.8; O2SAT 92–96
[2020-01-09] MEDS: IPRATROPIUM BR 0.02% INH SOLN 0.5 MG/2.5 ML VIAL INHALATION ×4 (02:40→21:00)
[2020-01-09] MEDS: LEVALBUTEROL NEB 1.25 MG/3 ML 0.63 MG INHALATION ×4 (02:40→21:00)
[2020-01-09 06:34] LABS: Hematocrit 34.5 % (37.0-47.0); Hemoglobin 11.3 g/dL (12.0-15.0); Mean Corpuscular HGB Conc 32.8 g/dl (32-36); Mean Corpuscular Hemoglobin 34.3 pg (26-34); Mean Corpuscular Volume 104.9 fl (80-100); Mean Platelet Volume 9.5 fl (7.4-10.4); Platelet Count Result 234 k/mm3 (150-375); Red Blood Count 3.29 M/mm3 (4.2-5.4); Red Cell Distribution Width 12.3 % (11.5-14.5); White Blood Count 6.5 K/mm3 (4.5-10.0)
[2020-01-09 06:51] LABS: Anion Gap 8.8 mmol/L (7-16); Blood Urea Nitrogen 6 mg/dL (7-17); Calcium 7.8 mg/dL (8.4-10.2); Carbon Dioxide 23 mmol/L (22-30); Chloride 99 mmol/L (98-107); Estimated CRCL calculation 68 ml/min; Estimated Glomerular Filt Rate > 60; Glucose 68 mg/dL (65-105); Potassium 3.8 mmol/L (3.4-5.0); Sodium 127 mmol/L (137-145)
[2020-01-09] MEDS: buPROPion HCL 75 MG TABLET PO (08:07)
[2020-01-09] MEDS: levETIRAcetam 250 MG TABLET PO ×2 (08:07→20:06)
[2020-01-09] MEDS: guaiFENesin 12 HR 600 MG TABCR PO ×2 (08:08→20:06)
[2020-01-09] MEDS: ISOSORBIDE MONONITRATE 30 MG TAB.ER.24H PO (08:08)
[2020-01-09 08:16] LABS: D Dimer 1.18 ug/mL (<0.48)
[2020-01-09] MEDS: predniSONE 40 MG, predniSONE 10 MG 50 MG PO (09:43)
--- NOTE | 2020-01-09 10:14 | PCPTNOTE ---
Patient refused treatment this date stating she will not be doing therapy, understands the benefits but doesn't want to do it, reports leg is broken in two places and refuses to move it. Educated patient on importance of maintain strength and how therapy helps and will not injury the L more but patient continues to refuse.
[2020-01-09 11:51] LABS: Creatinine Urine 32.7 mg/dL
[2020-01-09 12:01] LABS: Sodium Urine Random 39 meq/L
--- NOTE | 2020-01-09 14:04 | PM.IMPN ---
Progress Note: A&P Assessment and Plan (1) Closed tibia fracture: Code(s): S82.209A - Unspecified fracture of shaft of unspecified tibia, initial encounter for closed fracture Status: Acute Assessment and Plan: Patient reports decreased range of motion to her left knee along with pain with bearing any weight. X-ray of left knee and tib-fib shows that she has a possible anterior tibial cortical disruption. Cannot exclude acute fracture or primitive process such as multiple myeloma. Radiology recommended a CT scan or MRI of her left knee for further evaluation. Dr. Jarvis Ortho was consulted on the patient's case who states that she has an acute fracture based on his examination. He states that we cannot rule out multiple myeloma and did recommend a CT scan of her left knee to be completed For further evaluation. After much discussion with the patient she does not want to proceed with a CT of her left knee because she is worried about her insurance not covering it. I explained to her that she does have a fracture to her knee but the CT scan is more to look at if she may have multiple myeloma form of cancer. The patient states that if she does have cancer she does not want worked or want it treated because she has seen too many family members go through cancer. I believe the patient is of sound mind in making her own decisions and we will not proceed with a CT scan of her leg or further evaluation or workup into her possibly having multiple myeloma. Continue pain control with tramadol and [place] as needed. Dr. Jarvis will order a left knee immobilizer to be placed and recommends that she be nonweightbearing on her left leg for 8 weeks with frequent x-ray evaluations in his office. He recommends following up with her in the office in 3 weeks. Continue physical and occupational therapy and work on discharge planning. Continue monitoring. (2) Partial seizure: Code(s): R56.9 - Unspecified convulsions Status: Acute Assessment and Plan: the patient appears to be confused and does not answer my questions during my examination at times on 01/07/2020. The patient's brother is at bedside who states the patient is not her normal self she is normally very talkative. Patient's CT head and cervical spine on arrival showed no acute intracranial abnormality and only mild degenerative changes to her cervical spine. On examination she did have a slight pronator drift so I will ordered an MRI of her brain which showed moderate chronic small vessel disease. During my examination she stopped talking to me for about 2 minutes and in the meantime she was staring off. It does not appear she has a history of any seizure activity but due to her altered mental status and episode I ordered an EEG to rule out acute seizures EEG showed no abnormality. Dr. Richardson neurologist evaluated the patient who believes that she may have had a seizure which caused her fall prior to arrival and postictal phase. He is started her on Keppra 250 mg Q 12 for the treatment of possible seizures. Will continue monitoring and have Neurology make any adjustments to her regiment they feel is necessary. She seems to be back to her baseline without any confusion today. continue monitoring mental status. (3) Tachycardia: Code(s): R00.0 - Tachycardia, unspecified Status: Acute Assessment and Plan: Patient is found to be tachycardic at rest which could be related to her underlying COPD, deconditioned state, underlying PE, or thyroid issue. TSH was normal. D-dimer was elevated and I wanted to perform a CTA of her chest due to her tachycardia to rule out any underlying pneumonia or PE. the patient states she does not want further workup and evaluation because she is concerned about her insurance covering these tests. I ex
--- NOTE | 2020-01-09 14:05 | CONS_ITS ---
DATE OF CONSULTATION: 01/09/2020 HISTORY OF PRESENT ILLNESS: This is a 64-year-old female who came into the hospital a few days ago because she fell onto her left side. She originally was ruled out for a left hip fracture, but then she started complaining of some leg pain and then x-rays were done and she was found to have a proximal tibial anterior cortex fracture. She has been unable to ambulate without discomfort. She denies any hip pain at this point. Denies any back pain, neck pain or any other upper or lower extremity pain. PAST MEDICAL HISTORY: The patient cannot remember her past medical problems. She also has a history of COPD and emphysema. She has some peripheral vascular disease, hypertension, irritable bowel syndrome, depression, anxiety, psoriasis, hyponatremia, myocardial infarct, and anxiety. FAMILY HISTORY: She does relate a history of malignancy in her family, also hypertension and diabetes. SOCIAL HISTORY: She is a heavy smoker. She takes alcohol. She smokes 2 packs of cigarettes per day since she was a teenager. She lives by herself, but has her brothers who will help take care of her. ALLERGIES: TO IODINE AND MORPHINE, WHICH CAUSE HIVES AND SWELLING. MEDICATIONS: Albuterol, losartan. PHYSICAL EXAMINATION: EXTREMITIES: She has her left lower extremity propped up on a pillow. She has tenderness at the proximal 3rd of the tibia. She has no effusion to the knee. She has no tenderness over the lateral side of the knee or down the shaft of the fibula. She has no other tenderness in the midshaft or the distal tibia. She is able to dorsi and plantar flex her left foot without any difficulty. She has a dorsalis pedis 2+, posterior tib 1+. Sensation is intact in all dermatomes. Her strength is 5/5 with dorsi and plantar flexion. The hip range of motion is free of any pain with passive motion. She is unable to perform a straight leg raise because of the pain in her leg. The right lower extremity, she has no pain with passive motion of the hip. She has no tenderness in the hip or the thigh region. She has no knee tenderness. She is able to flex and extend the right knee. She has no tenderness in the tib-fib or the foot and ankle. Dorsalis pedis pulse 2+, posterior tib pulse is 1+. Sensation is intact in all dermatomes and she has 5/5 strength. Upper extremity exam, she elevates both upper extremities. She has no tenderness in the clavicle, shoulders, arms, elbows, forearms, wrists, and hands. NECK: Nontender and it is supple. There are no masses. SPINE: Thoracic spine nontender. L-spine, sacroiliac region, and coccyx nontender. IMAGING DATA: X-rays show an anterior cortical defect at the 1/3 proximal tibia. It is also around the tibial tubercle. IMPRESSION: At this time, I agree with the evaluation with a CT scan given concerns of Radiology of this to be possibly multiple myeloma and we will go ahead and get that. PLAN: Would be to place the patient in a knee immobilizer. She should be nonweightbearing for at least 8 weeks with frequent x-ray evaluations in the office. I will see her at discharge in approximately 3 weeks' time. JEROMY GOLDEN M.D. PALEONTOLOGY TEACHER PALEONTOLOGY TEACHER D Aditya MT: Emmanuel
--- NOTE | 2020-01-09 15:18 | WPDNEUROPN ---
Progress Note: A&P Assessment and Plan (1) Partial seizure: Code(s): R56.9 - Unspecified convulsions Status: Acute (2) Left knee pain: Code(s): M25.562 - Pain in left knee Status: Acute (3) Tachycardia: Code(s): R00.0 - Tachycardia, unspecified Status: Acute (4) Generalized weakness: Code(s): R53.1 - Weakness Status: Acute (5) COPD (chronic obstructive pulmonary disease): Code(s): J44.9 - Chronic obstructive pulmonary disease, unspecified Status: Acute (6) Chronic respiratory failure: Code(s): J96.10 - Chronic respiratory failure, unspecified whether with hypoxia or hypercapnia Status: Acute (7) Altered mental status: Code(s): R41.82 - Altered mental status, unspecified Status: Acute (8) Hypertension: Qualifiers: Hypertension type: unspecified Qualified Code(s): I10 - Essential (primary) hypertension Code(s): I10 - Essential (primary) hypertension Status: Acute (9) Leukocytosis: Qualifiers: Leukocytosis type: unspecified Qualified Code(s): D72.829 - Elevated white blood cell count, unspecified Code(s): D72.829 - Elevated white blood cell count, unspecified Status: Acute (10) Contusion of hip, left: Qualifiers: Encounter type: initial encounter Qualified Code(s): S70.02XA - Contusion of left hip, initial encounter Code(s): S70.02XA - Contusion of left hip, initial encounter Status: Acute (11) Rhabdomyolysis: Qualifiers: Encounter type: initial encounter Rhabdomyolysis type: traumatic Qualified Code(s): T79.6XXA - Traumatic ischemia of muscle, initial encounter Code(s): M62.82 - Rhabdomyolysis Status: Acute (12) Alcoholism: Code(s): F10.20 - Alcohol dependence, uncomplicated Status: Acute Additional Plan discussed with the patient about her alcohol and the relationship to the seizures all option risk and benefits were explained to her she understood it well management as such Review of Systems Review of Systems: All systems reviewed & are unremarkable except as noted in HPI and below Exam Const: General: comfortable and no acute distress HENMT: General nose exam: Normal nares present Mouth: Yes moist mucous membranes Eyes: General: appearance normal, both eyes and all related structures Neck: Neck: supple and no JVD Resp: Effort & Inspection: normal respiratory effort Auscultation: clear to auscultation bilaterally Cardio: Rate: regular rate Rhythm: regular rhythm Skin: General skin exam: normal color and no rashes or lesions noted Neuro: Other: patient is much more lucid awake alert well oriented time place person and of course the limitation of the lower extremities related to the probable fracture of the tibia as noted on the x-rays that management is left to the hospitalist and the orthopedic physician Extrem: Other: tender left lower extremity and bruising Psych: Mental Status: mental status grossly normal Objective Data Vital Signs Vital Signs: Vital Signs - 24 hr 01/08/20 16:00 01/08/20 20:00 01/08/20 21:00 Temperature Pulse Rate 122 H 118 H 110 H Respiratory Rate 20 Blood Pressure Pulse Oximetry 95 01/08/20 21:12 01/08/20 22:00 01/09/20 00:00 Temperature 36.6 C Pulse Rate 107 H 117 H 100 Respiratory Rate 20 20 Blood Pressure 127/70 Pulse Oximetry 92 01/09/20 02:40 01/09/20 02:48 01/09/20 04:00 Temperature Pulse Rate 113 H 110 H 95 Respiratory Rate 18 18 Blood Pressure Pulse Oximetry 01/09/20 06:00 01/09/20 08:00 01/09/20 08:23 Temperature 36.4 C Pulse Rate 106 H 93 97 Respiratory Rate 16 20 Blood Pressure 127/58 L Pulse Oximetry 96 92 01/09/20 08:34 01/09/20 12:00 01/09/20 14:54 Temperature Pulse Rate 95 104 H 104 H Respiratory Rate 20 20 Blood Pressure Pulse Oximetry 01/09/20 15:03 [place]
[2020-01-09] MEDS: MELATONIN 3 MG TABLET PO (20:06)
[2020-01-10] VITALS (9 sets, daily range): BP systolic 111–130; BP diastolic 54–60; PULSE 88–102; RESP 16–20; TEMP 36.6–37.1; O2SAT 93–97
[2020-01-10] MEDS: LEVALBUTEROL NEB 1.25 MG/3 ML 0.63 MG INHALATION ×3 (01:45→21:24)
[2020-01-10] MEDS: IPRATROPIUM BR 0.02% INH SOLN 0.5 MG/2.5 ML VIAL INHALATION ×3 (01:45→21:22)
[2020-01-10] MEDS: traMADol HCL 50 MG TABLET PO ×2 (05:00→14:55)
[2020-01-10 06:55] LABS: Anion Gap 5.7 mmol/L (7-16); Blood Urea Nitrogen 4 mg/dL (7-17); Calcium 8.4 mg/dL (8.4-10.2); Carbon Dioxide 30 mmol/L (22-30); Chloride 97 mmol/L (98-107); Estimated CRCL calculation 68 ml/min; Estimated Glomerular Filt Rate > 60; Glucose 107 mg/dL (65-105); Magnesium 1.6 mg/dL (1.6-2.3); Potassium 3.7 mmol/L (3.4-5.0); Sodium 129 mmol/L (137-145)
[2020-01-10] MEDS: levETIRAcetam 250 MG TABLET PO ×2 (09:27→21:04)
[2020-01-10] MEDS: MAGNESIUM SULF 2 GM/WATER 50ML 2 GM/50 ML BAG IVPB (09:27)
[2020-01-10] MEDS: ISOSORBIDE MONONITRATE 30 MG TAB.ER.24H PO (09:27)
[2020-01-10] MEDS: guaiFENesin 12 HR 600 MG TABCR PO ×2 (09:28→21:02)
--- NOTE | 2020-01-10 11:52 | PM.IMPN ---
Progress Note: A&P Assessment and Plan (1) Closed tibia fracture: Code(s): S82.209A - Unspecified fracture of shaft of unspecified tibia, initial encounter for closed fracture Status: Acute Assessment and Plan: Patient reports decreased range of motion to her left knee along with pain with bearing any weight. X-ray of left knee and tib-fib shows that she has a possible anterior tibial cortical disruption. Cannot exclude acute fracture or primitive process such as multiple myeloma. Radiology recommended a CT scan or MRI of her left knee for further evaluation. Dr. Jarvis Ortho was consulted on the patient's case who states that she has an acute fracture based on his examination. He states that we cannot rule out multiple myeloma and did recommend a CT scan of her left knee to be completed For further evaluation. After much discussion with the patient, now that she knows that she has medical insurance she is willing to have the CT of her tibia completed to further evaluate her fracture and further evaluation of multiple myeloma possibility. Continue pain control with tramadol and [place] as needed. Dr. Jarvis will order a left knee immobilizer to be placed and recommends that she be nonweightbearing on her left leg for 8 weeks with frequent x-ray evaluations in his office. He recommends following up with her in the office in 3 weeks. Continue physical and occupational therapy and work on discharge planning. Continue monitoring. (2) Partial seizure: Code(s): R56.9 - Unspecified convulsions Status: Acute Assessment and Plan: the patient appears to be confused and does not answer my questions during my examination at times on 01/07/2020. The patient's brother is at bedside who states the patient is not her normal self she is normally very talkative. Patient's CT head and cervical spine on arrival showed no acute intracranial abnormality and only mild degenerative changes to her cervical spine. On examination she did have a slight pronator drift so I will ordered an MRI of her brain which showed moderate chronic small vessel disease. During my examination she stopped talking to me for about 2 minutes and in the meantime she was staring off. It does not appear she has a history of any seizure activity but due to her altered mental status and episode I ordered an EEG to rule out acute seizures EEG showed no abnormality. Dr. Richardson neurologist evaluated the patient who believes that she may have had a seizure which caused her fall prior to arrival and postictal phase. He is started her on Keppra 250 mg Q 12 for the treatment of possible seizures. Will continue monitoring and have Neurology make any adjustments to her regiment they feel is necessary. She seems to be back to her baseline without any confusion today. continue monitoring mental status. (3) Tachycardia: Code(s): R00.0 - Tachycardia, unspecified Status: Acute Assessment and Plan: Patient is found to be tachycardic at rest which could be related to her underlying COPD, deconditioned state, underlying PE, or thyroid issue. TSH was normal. D-dimer was elevated and I wanted to perform a CTA of her chest. Yesterday she refused the test because she had thought she did not have insurance. Now that she knows she has insurance she is willing to have the CTA of her chest. We will begin to go through the prednisone and Benadryl administration prior to having the contrast due to her allergy and hopefully have the CTA chest completed around 1:00 a.m. tomorrow morning for further rule out any underlying pneumonia or PE. Otherwise the patient denies any change to her breathing, shortness of breath, chest pain at this time. continue monitoring patient's heart rate and consider adding Cardizem if it is still elevated and she
[2020-01-10] MEDS: ENOXAPARIN 40 MG/0.4 ML SYRINGE SUB-Q (12:26)
[2020-01-10] MEDS: predniSONE 40 MG, predniSONE 10 MG 50 MG PO ×2 (12:27→18:13)
--- NOTE | 2020-01-10 14:54 | PCPTNOTE ---
The patient treatment was not able to be completed on 01/10/20 due to patient having a tibia fracture and is now non weight bearing on the Left will need new orders.
--- NOTE | 2020-01-10 17:21 | WPDNEUROPN ---
Progress Note: A&P Assessment and Plan (1) Hyponatremia: Code(s): E87.1 - Hypo-osmolality and hyponatremia Status: Acute (2) Closed tibia fracture: Code(s): S82.209A - Unspecified fracture of shaft of unspecified tibia, initial encounter for closed fracture Status: Acute (3) Alcoholism: Code(s): F10.20 - Alcohol dependence, uncomplicated Status: Acute (4) Partial seizure: Code(s): R56.9 - Unspecified convulsions Status: Acute (5) Left knee pain: Code(s): M25.562 - Pain in left knee Status: Acute (6) Generalized weakness: Code(s): R53.1 - Weakness Status: Acute (7) Tachycardia: Code(s): R00.0 - Tachycardia, unspecified Status: Acute (8) COPD (chronic obstructive pulmonary disease): Code(s): J44.9 - Chronic obstructive pulmonary disease, unspecified Status: Acute (9) Chronic respiratory failure: Code(s): J96.10 - Chronic respiratory failure, unspecified whether with hypoxia or hypercapnia Status: Acute (10) Hypertension: Qualifiers: Hypertension type: unspecified Qualified Code(s): I10 - Essential (primary) hypertension Code(s): I10 - Essential (primary) hypertension Status: Acute (11) Contusion of hip, left: Qualifiers: Encounter type: initial encounter Qualified Code(s): S70.02XA - Contusion of left hip, initial encounter Code(s): S70.02XA - Contusion of left hip, initial encounter Status: Acute Additional Plan continue present medical managed Review of Systems Review of Systems: All systems reviewed & are unremarkable except as noted in HPI and below Exam Const: General: comfortable and no acute distress HENMT: General nose exam: Normal nares present Mouth: Yes moist mucous membranes Eyes: General: appearance normal, both eyes and all related structures Neck: Neck: supple and no JVD Resp: Other: bilateral rhonchi Cardio: Rate: regular rate Rhythm: regular rhythm GI: Auscultation: normal bowel sounds Neuro: Other: patient is awake alert well oriented she does have left lower extremity weakness related to the injury as has been mentioned by the previous physicians Tete orthopedic physician Extrem: Other: the patient's left lower extremity is in the immobilizer Psych: Mental Status: mental status grossly normal Objective Data Vital Signs Vital Signs: Vital Signs - 24 hr 01/09/20 21:01 01/09/20 21:09 01/09/20 22:00 Temperature 36.8 C Pulse Rate 99 97 107 H Respiratory Rate 20 20 20 Blood Pressure 117/53 L Pulse Oximetry 94 01/10/20 01:46 01/10/20 01:52 01/10/20 01:55 Temperature Pulse Rate 102 H 99 Respiratory Rate 18 Blood Pressure Pulse Oximetry 94 01/10/20 06:00 01/10/20 08:35 01/10/20 08:36 Temperature 36.6 C Pulse Rate 99 100 Respiratory Rate 20 20 Blood Pressure 123/55 L Pulse Oximetry 97 94 01/10/20 14:00 Temperature 36.6 C Pulse Rate 97 Respiratory Rate 16 Blood Pressure 130/60 Pulse Oximetry 95 Intake/Output Intake/Output: Intake & Output 01/07/20 01/08/20 01/09/20 01/10/20 23:59 23:59 23:59 23:59 Intake Total 2900 9412 533 3157 Output Total 099 382 5302 1825 Balance 2550 1280 -760 -815 Meds/Results Medications: Active Medications Generic Name Dose Route Start Last Admin Trade Name Freq PRN Reason Stop Dose Admin Acetaminophen 650 mg 01/08/20 14:31 Tylenol Tablet PO Q4H PRN pain 1-3 Hydrocodone Bitart/Acetaminophen 1 tab 01/08/20 14:27 01/10/20 12:26 [place] 5-325 Mg PO 1 tab Q4H PRN Administration Pain Rated 7-10 Diphenhydramine HCl 50 mg 01/11/20 00:00 Benadryl Cap PO 01/11/20 00:01 ONCE ONE Enoxaparin Sodium 40 mg 01/10/20 11:20 01/10/20 12:26 Lovenox SUB-Q 40 mg DAILY KAE Administration Guaifenesin 600 mg 01/06/20 13:05 01/10/20 09:28 Mucinex 12 Hr Tab PO 600 mg Q12
[2020-01-10] MEDS: MELATONIN 3 MG TABLET PO (21:04)
[2020-01-11] VITALS (12 sets, daily range): BP systolic 114–127; BP diastolic 42–57; PULSE 88–98; RESP 16–92; TEMP 36.6–36.8; O2SAT 91–94
[2020-01-11] MEDS: diphenhydrAMINE HCl CAP 25 MG CAPSULE 50 MG PO (00:10)
[2020-01-11] MEDS: predniSONE 40 MG, predniSONE 10 MG 50 MG PO (00:10)
[2020-01-11] MEDS: LEVALBUTEROL NEB 1.25 MG/3 ML 0.63 MG INHALATION ×4 (01:49→20:25)
[2020-01-11] MEDS: IPRATROPIUM BR 0.02% INH SOLN 0.5 MG/2.5 ML VIAL INHALATION ×4 (01:50→20:25)
[2020-01-11 06:30] LABS: Hematocrit 34.2 % (37.0-47.0); Hemoglobin 11.5 g/dL (12.0-15.0)
[2020-01-11 06:45] LABS: Anion Gap 6.2 mmol/L (7-16); Blood Urea Nitrogen 4 mg/dL (7-17); Calcium 8.5 mg/dL (8.4-10.2); Carbon Dioxide 30 mmol/L (22-30); Chloride 98 mmol/L (98-107); Estimated CRCL calculation 68 ml/min; Estimated Glomerular Filt Rate > 60; Glucose 156 mg/dL (65-105); Magnesium 1.8 mg/dL (1.6-2.3); Potassium 4.2 mmol/L (3.4-5.0); Sodium 130 mmol/L (137-145)
[2020-01-11] MEDS: ISOSORBIDE MONONITRATE 30 MG TAB.ER.24H PO (07:49)
[2020-01-11] MEDS: guaiFENesin 12 HR 600 MG TABCR PO ×2 (07:50→21:06)
[2020-01-11] MEDS: ENOXAPARIN 40 MG/0.4 ML SYRINGE SUB-Q (07:50)
[2020-01-11] MEDS: levETIRAcetam 250 MG TABLET PO (07:50)
--- NOTE | 2020-01-11 14:57 | PM.IMPN ---
Progress Note: A&P Assessment and Plan (1) Closed tibia fracture: Code(s): S82.209A - Unspecified fracture of shaft of unspecified tibia, initial encounter for closed fracture Status: Acute Assessment and Plan: Patient reports decreased range of motion to her left knee along with pain with bearing any weight. X-ray of left knee and tib-fib shows that she has a possible anterior tibial cortical disruption. Cannot exclude acute fracture or primitive process such as multiple myeloma. Radiology recommended a CT scan or MRI of her left knee for further evaluation. Dr. Jarvis Ortho was consulted on the patient's case who states that she has an acute fracture based on his examination. He states that we cannot rule out multiple myeloma and did recommend a CT scan of her left knee to be completed For further evaluation. After much discussion with the patient, she decided to have the CT of her tibia completed which showed Nondisplaced oblique fracture of proximal tibia involving the intercondylar eminence and tibial metaphysis. Mild left knee osteoarthritis. Small knee joint effusion. Small Negron's cyst. Continue pain control with tramadol and [place] as needed. Dr. Jarvis will order a left knee immobilizer to be placed and recommends that she be nonweightbearing on her left leg for 8 weeks with frequent x-ray evaluations in his office. He recommends following up with her in the office in 3 weeks. she is working with physical and occupational therapy and did not do well today and she was a 1 minimal assist with getting to the side the bed and a to mod assist with standing. she did not take any steps. We have ruled out acute PE or DVT at this time and for DVT prophylaxis I recommend her taking 325 mg of aspirin once daily for 8 weeks or until cleared by Dr. Jarvis. patient states she took this after her prior hip surgery without any issues or clotting problems. Therapies are recommending her go to an SNF upon discharge. will start the process with care coordination to see where she can be excepted and they recommend having her COVID tested which most facilities are having them do. we will see how she does with therapy tomorrow and if she is still not doing well she will have to go to an SNF which she is in agreement with at this time. Continue monitoring. (2) Partial seizure: Code(s): R56.9 - Unspecified convulsions Status: Acute Assessment and Plan: the patient appears to be confused and does not answer my questions during my examination at times on 01/07/2020. The patient's brother is at bedside who states the patient is not her normal self she is normally very talkative. Patient's CT head and cervical spine on arrival showed no acute intracranial abnormality and only mild degenerative changes to her cervical spine. On examination she did have a slight pronator drift so I will ordered an MRI of her brain which showed moderate chronic small vessel disease. During my examination she stopped talking to me for about 2 minutes and in the meantime she was staring off. It does not appear she has a history of any seizure activity but due to her altered mental status and episode I ordered an EEG to rule out acute seizures EEG showed no abnormality. Dr. Richardson neurologist evaluated the patient who believes that she may have had a seizure which caused her fall prior to arrival and postictal phase. He is started her on Keppra 250 mg Q 12 for the treatment of possible seizures. * Today the patient states that she does not want to take Keppra and states she has never had a seizure in her life. She will refuse to take the medication and does not want seizure to be a part of her medical history because she still wants to be able to drive and get around on her own. I went to call Dr. Richardson and left him a voicemail about her concerns. I explained to the pat
[2020-01-11] MEDS: MELATONIN 3 MG TABLET PO (21:06)
[2020-01-12] VITALS (9 sets, daily range): BP systolic 119–136; BP diastolic 46–51; PULSE 85–97; RESP 18; TEMP 36.4–36.8; O2SAT 92
[2020-01-12] MEDS: LEVALBUTEROL NEB 1.25 MG/3 ML 0.63 MG INHALATION ×3 (02:36→13:49)
[2020-01-12] MEDS: IPRATROPIUM BR 0.02% INH SOLN 0.5 MG/2.5 ML VIAL INHALATION ×3 (02:36→13:49)
[2020-01-12 06:15] LABS: Hemoglobin 10.9 g/dL (12.0-15.0)
[2020-01-12] MEDS: traMADol HCL 50 MG TABLET PO (06:41)
[2020-01-12 06:44] LABS: Anion Gap 6.4 mmol/L (7-16); Blood Urea Nitrogen 7 mg/dL (7-17); Calcium 8.3 mg/dL (8.4-10.2); Carbon Dioxide 32 mmol/L (22-30); Chloride 97 mmol/L (98-107); Estimated CRCL calculation 58 ml/min; Estimated Glomerular Filt Rate > 60; Glucose 95 mg/dL (65-105); Potassium 3.4 mmol/L (3.4-5.0); Sodium 132 mmol/L (137-145)
[2020-01-12] MEDS: ISOSORBIDE MONONITRATE 30 MG TAB.ER.24H PO (08:48)
[2020-01-12] MEDS: ENOXAPARIN 40 MG/0.4 ML SYRINGE SUB-Q (08:48)
[2020-01-12] MEDS: guaiFENesin 12 HR 600 MG TABCR PO (08:48)
--- NOTE | 2020-01-12 11:16 | PCDIET ---
Nutrition Follow-Up Complete: Inadequate oral intake at present related to altered mental status as evidenced by NPO diet. Patient to meet estimated nutritional needs. Goal: Progressing towards goal. Continue goal. Pt current nutrition is Regular+Ensure Enlive and Ensure compact. Nutrition recommendation: Cancelled all supplements per pt request/Diet appropriate Last recorded weight is 45 kg, no new wt provided. Recommend new wt. Labs Reviewed:Na 132 Meds Noted: Additional Notes: Pt with possible d/c home today. Appetite has improved and average intake is 67%. Regular diet appropriate. We will continue to monitor PO intake and wt every five days.
[2020-01-13 14:41] LABS: SARS-CoV-2 RNA PCR Negative
[2020-01-14 05:32] LABS: Beta-2-Microglobulin 2.31 mg/L (<=2.51)
--- NOTE | 2020-01-29 16:28 | PM.DS ---
DS: Admitting Diagnosis Admitting Diagnosis Admitting Diagnosis: left hip contusion DS: Discharge Diagnosis Discharge Diagnosis (1) Closed tibia fracture: Code(s): S82.209A - Unspecified fracture of shaft of unspecified tibia, initial encounter for closed fracture Status: Acute Assessment and Plan: X-ray of left knee and tib-fib shows that she has a possible anterior tibial cortical disruption. Cannot exclude acute fracture or primitive process such as multiple myeloma. Radiology recommended a CT scan or MRI of her left knee for further evaluation. Dr. Jarvis Ortho was consulted on the patient's case who states that she has an acute fracture based on his examination. After much discussion with the patient, she decided to have the CT of her tibia completed which showed Nondisplaced oblique fracture of proximal tibia involving the intercondylar eminence and tibial metaphysis. Mild left knee osteoarthritis. Small knee joint effusion. Small Negron's cyst. Continue pain control with tramadol and [place] as needed. Dr. Jarvis will order a left knee immobilizer to be placed and recommends that she be nonweightbearing on her left leg for 8 weeks with frequent x-ray evaluations in his office. He recommends following up with her in the office in 3 weeks. she is working with physical and occupational therapy and did not do well today and she was a 1 minimal assist with getting to the side the bed and a to mod assist with standing. she did not take any steps. We have ruled out acute PE or DVT at this time and for DVT prophylaxis I recommend her taking 325 mg of aspirin once daily for 8 weeks or until cleared by Dr. Jarvis. patient states she took this after her prior hip surgery without any issues or clotting problems. Therapies are recommending her go to an SNF upon discharge. will start the process with care coordination to see where she can be excepted and they recommend having her COVID tested which most facilities are having them do. we will see how she does with therapy tomorrow and if she is still not doing well she will have to go to an SNF which she is in agreement with at this time. Pt seen by colleague prior days work up is as above from her notes (2) Partial seizure: Code(s): R56.9 - Unspecified convulsions Status: Acute Assessment and Plan: the patient appears to be confused and does not answer my questions during my examination at times on 01/07/2020. The patient's brother is at bedside who states the patient is not her normal self she is normally very talkative. Patient's CT head and cervical spine on arrival showed no acute intracranial abnormality and only mild degenerative changes to her cervical spine. On examination she did have a slight pronator drift so I will ordered an MRI of her brain which showed moderate chronic small vessel disease. During my examination she stopped talking to me for about 2 minutes and in the meantime she was staring off. It does not appear she has a history of any seizure activity but due to her altered mental status and episode I ordered an EEG to rule out acute seizures EEG showed no abnormality. Dr. Richardson neurologist evaluated the patient who believes that she may have had a seizure which caused her fall prior to arrival and postictal phase. He is started her on Keppra 250 mg Q 12 for the treatment of possible seizures. * Today the patient states that she does not want to take Keppra and states she has never had a seizure in her life. She will refuse to take the medication and does not want seizure to be a part of her medical history because she still wants to be able to drive and get around on her own. I went to call Dr. Richardson and left him a voicemail about her concerns. I explained to the patient that we cannot rule in or rule out a seizure and normally after 1 seizure you do not get s
== END 2020-01-12 16:30 | disposition home health service (06) | DRG 563 ==
LOC: ANHED 21:46 → ANH3MEDSUR 21:57
PROVIDERS: Physician Assistant; Admitting Provider Family Medicine; Emergency Provider Emergency Medicine; PCP Family Medicine; Visit Provider Family Medicine
DX: S82.235A Nondisplaced oblique fracture of shaft of left tibia, initial encounter for closed fracture (principal); J96.10 Chronic respiratory failure, unspecified whether with hypoxia or hypercapnia; E87.1 Hypo-osmolality and hyponatremia; R56.9 Unspecified convulsions; Z99.81 Dependence on supplemental oxygen; J43.9 Emphysema, unspecified; F17.210 Nicotine dependence, cigarettes, uncomplicated; F10.20 Alcohol dependence, uncomplicated; R00.0 Tachycardia, unspecified; R53.1 Weakness; S70.02XA Contusion of left hip, initial encounter; T79.6XXA Traumatic ischemia of muscle, initial encounter; W19.XXXA Unspecified fall, initial encounter; Z11.59 Encounter for screening for other viral diseases; D72.829 Elevated white blood cell count, unspecified; I10 Essential (primary) hypertension; G62.9 Polyneuropathy, unspecified; I73.9 Peripheral vascular disease, unspecified; K58.9 Irritable bowel syndrome, unspecified; L40.9 Psoriasis, unspecified; I25.2 Old myocardial infarction
CPT/HCPCS: 36415; 36600; 70450; 70551; 71045; 71275; 72125; 73502; 73562; 73590; 73700; 73721; 80048; 80053; 80307; 81003; 82232; 82550; 82570; 82607; 82728; 82746; 82805; 83540; 83550; 83735; 84300; 84443; 84466; 85014; 85018; 85025; 85027; 85380; 85610; 85730; 87635; 93971; 94640; 94667; 94668; 95816; 96361; 96374; 96375; 96376; 97110; 97116; 97161; 97166; 97530; 99285; A9270; C9803; G0378; J1650; J1885; J3010; J3475; J7030; J7512; Q9967; U0003